=== PATIENT | female | born 1995 | race African-American/Black ===

== ENCOUNTER 2017-10-12 20:04 | Emergency (ER) | payer MEDICAID, OTHER ==
[~2017-10-12] VITALS: Ht 160 cm; Wt 61.0 kg
[~2017-10-12 20:04] MED LIST: ALBU05; ALPR2TAB; FLUT1DIS; MONT10TA21
[2017-10-12] MEDS ORDERED: SODIUM CHLORIDE 0.9% 1,000 ML IV ONE (23:05)
[2017-10-12] MEDS ORDERED: ONDANSETRON HCL 4MG/2ML VIAL IV STA (23:05)
[2017-10-12 23:39] LABS: EOSINOPHILS % 3.3 % (0.0-5.0); HEMATOCRIT. 39.7 % (36.0-48.0); LYMPHOCYTES % 34.7 % (20.0-50.0); MEAN CORPUSCULAR HEMOGLOBIN 28.6 pg (28.0-32.0); MEAN CORPUSCULAR VOLUME 87.4 fL (81.0-99.0); MEAN PLATELET VOLUME 7.1 fl (7.4-10.4); MONOCYTES % 4.4 % (2.0-8.0); NEUTROPHILS % 56.6 % (40.0-76.0); PLATELET 398 x1000/uL (130-400); RED BLOOD CELL COUNT 4.54 mill/uL (4.2-5.4); RED CELL DISTRIBUTION WIDTH 13.6 % (11.6-14.6)
[2017-10-12 23:42] LABS: PROTHROMBIN TIME 10.7 sec (9.4-11.6)
[2017-10-12 23:43] LABS: HCG SCREEN NEGATIVE
[2017-10-12 23:49] LABS: CHLORIDE 108 mEq/L (98-107); ETHANOL BLOOD 223 mg/dL
[2017-10-12 23:59] LABS: CLARITY URINE CLEAR (CLEAR); COLOR URINE YELLOW (YELLOW); KETONES URINE NEGATIVE (NEGATIVE); LEUKOCYTE ESTERASE URINE TRACE (NEGATIVE); NITRITE URINE NEGATIVE (NEGATIVE); OCCULT BLOOD URINE 3+ (NEGATIVE); PROTEIN URINE NEGATIVE (NEGATIVE); SPECIFIC GRAVITY URINE 1.009 (1.005-1.030); UROBILINOGEN URINE 0.2 E.U./dL (0.2-1.0)
[2017-10-13 00:33] LABS: *AMPHETAMINES SCREEN URINE NEGATIVE (NEGATIVE); *BARBITURATES SCREEN URINE NEGATIVE (NEGATIVE); *BENZODIAZEPINES SCREEN URINE NEGATIVE (NEGATIVE); *COCAINE SCREEN URINE NEGATIVE (NEGATIVE); CANNABINOID URINE SCREEN NEGATIVE (NEGATIVE); METHADONE URINE SCREEN NEGATIVE (NEGATIVE); OPIATES URINE SCREEN NEGATIVE (NEGATIVE); PHENCYCLIDINE URINE SCREEN NEGATIVE (NEGATIVE)
[2017-10-13 05:02] VITALS: BP 127/79
== END 2017-10-13 05:45 | disposition home or self-care (01) ==
LOC: ER 20:30
DX: F10.129 Alcohol abuse with intoxication, unspecified (principal); Y90.7 Blood alcohol level of 200-239 mg/100 ml; Z20.2 Contact with and (suspected) exposure to infections with a predominantly sexual mode of transmission; R42 Dizziness and giddiness; R03.0 Elevated blood-pressure reading, without diagnosis of hypertension; J44.9 Chronic obstructive pulmonary disease, unspecified; F17.210 Nicotine dependence, cigarettes, uncomplicated
CPT/HCPCS: 36415; 71045; 80053; 80305; 81001; 84703; 85025; 85610; 86703; 87077; 87086; 87186; 96360; 99285; G0482; J2405; J7030; Z7610; 81003

== ENCOUNTER 2018-07-01 02:48 | Emergency (ER) | payer MEDICAID, OTHER ==
[~2018-07-01] VITALS: Ht 162.6 cm; Wt 61.0 kg
[2018-07-01] MEDS ORDERED: MORPHINE SULFATE 4 MG/ML CPJ (NOT FOR IM USE) IV STA (03:47)
[2018-07-01] MEDS ORDERED: SODIUM CHLORIDE 0.9% 1,000 ML IV ONE (03:47)
[2018-07-01] MEDS ORDERED: ONDANSETRON HCL 4MG/2ML INJ IV STA (03:47)
[2018-07-01] MEDS ORDERED: MORPHINE SULFATE 4 MG/ML CPJ (NOT FOR IM USE) IV ONE (08:15)
[2018-07-01] MEDS ORDERED: ONDANSETRON HCL 4MG/2ML INJ IV ONE (08:15)
[2018-07-01 09:50] VITALS: BP 103/76
== END 2018-07-01 09:54 | disposition home or self-care (01) ==
LOC: ER 02:48
DX: S02.32XA Fracture of orbital floor, left side, initial encounter for closed fracture (principal); Y08.89XA Assault by other specified means, initial encounter; Y93.89 Activity, other specified; Y92.89 Other specified places as the place of occurrence of the external cause; Y99.8 Other external cause status; Z88.8 Allergy status to other drugs, medicaments and biological substances
CPT/HCPCS: 70450; 70486; 81025; 96361; 96374; 96375; 96376; 99284; J2270; J2405; J7030

== ENCOUNTER 2019-04-12 13:47 | Emergency (ER) | payer OTHER ==
[~2019-04-12] VITALS: Ht 162.6 cm; Wt 62.0 kg
[2019-04-12 15:44] LABS: CLARITY URINE CLOUDY (CLEAR); COLOR URINE YELLOW (YELLOW); KETONES URINE TRACE (NEGATIVE); LEUKOCYTE ESTERASE URINE 1+ (NEGATIVE); NITRITE URINE NEGATIVE (NEGATIVE); OCCULT BLOOD URINE NEGATIVE (NEGATIVE); PH URINE 5.5 (4.5-8.0); PROTEIN URINE NEGATIVE (NEGATIVE); SPECIFIC GRAVITY URINE 1.029 (1.005-1.030); UROBILINOGEN URINE 0.2 E.U./dL (0.2-1.0)
[2019-04-12] MEDS ORDERED: FLUCONAZOLE 50MG TABLET PO ONE (17:45)
[2019-04-12] MEDS ORDERED: DIPHENHYDRAMINE 25MG CAPSULE PO ONE (18:15)
[2019-04-12] MEDS ORDERED: CEFTRIAXONE SODIUM 250 MG/VIAL IM ONE (18:15)
[2019-04-12] MEDS ORDERED: AZITHROMYCIN 500 MG TABLET PO ONE (18:15)
[2019-04-12 19:00] VITALS: BP 124/76
== END 2019-04-12 19:19 | disposition home or self-care (01) ==
LOC: ER 13:47
DX: O98.811 Other maternal infectious and parasitic diseases complicating pregnancy, first trimester (principal); O23.41 Unspecified infection of urinary tract in pregnancy, first trimester; O21.9 Vomiting of pregnancy, unspecified; O23.511 Infections of cervix in pregnancy, first trimester; O99.511 Diseases of the respiratory system complicating pregnancy, first trimester; Z3A.08 8 weeks gestation of pregnancy; J45.909 Unspecified asthma, uncomplicated; Z98.890 Other specified postprocedural states; Z88.1 Allergy status to other antibiotic agents
CPT/HCPCS: 36415; 76801; 76817; 81003; 81025; 84702; 86850; 86900; 86901; 87491; 87591; 96372; 99284; J0696; Q0163

== ENCOUNTER 2019-07-10 15:38 | Emergency (ER) | payer OTHER ==
[~2019-07-10] VITALS: Ht 162.6 cm; Wt 56.0 kg
[2019-07-10] MEDS ORDERED: ACETAMINOPHEN 325MG TABLET PO ONE (18:00)
[2019-07-10 19:33] VITALS: BP 102/41
== END 2019-07-10 20:01 | disposition home or self-care (01) ==
LOC: ER 15:38
DX: S09.90XA Unspecified injury of head, initial encounter (principal); J45.909 Unspecified asthma, uncomplicated; Z98.890 Other specified postprocedural states; Z79.899 Other long term (current) drug therapy; V89.2XXA Person injured in unspecified motor-vehicle accident, traffic, initial encounter; Y93.89 Activity, other specified; Y92.89 Other specified places as the place of occurrence of the external cause; Y99.8 Other external cause status
CPT/HCPCS: 99284

== ENCOUNTER 2021-02-26 10:42 | Emergency (ER) | payer OTHER ==
[~2021-02-26] VITALS: Ht 162.6 cm; Wt 68.0 kg
[2021-02-26] MEDS ORDERED: PREDNISONE 20MG TABLET PO STA (11:02)
[2021-02-26] MEDS ORDERED: ALBUTEROL (0.083%) 2.5MG/3ML NEB HHN STA (11:02)
[2021-02-26] MEDS ORDERED: IPRATROPIUM BROMIDE (0.02%) 0.5MG/2.5ML NEB HHN STA (11:02)
[2021-02-26] MEDS ORDERED: P50 MT (12:15)
[2021-02-26] MEDS ORDERED: ALBU6.7H9 INH (12:15)
[2021-02-26] MEDS ORDERED: BECL10.62 INH (12:15)
[2021-02-26 12:43] VITALS: BP 152/78
== END 2021-02-26 12:44 | disposition home or self-care (01) ==
LOC: ER 11:45
DX: J45.901 Unspecified asthma with (acute) exacerbation (principal); J20.9 Acute bronchitis, unspecified; I10 Essential (primary) hypertension; F12.10 Cannabis abuse, uncomplicated; Z98.890 Other specified postprocedural states; Z79.899 Other long term (current) drug therapy; Z88.8 Allergy status to other drugs, medicaments and biological substances
CPT/HCPCS: 71045; 94644; 99285; J7512; Z7610

== ENCOUNTER 2021-06-10 12:21 | Emergency (ER) | payer OTHER ==
[~2021-06-10] VITALS: Ht 165.1 cm; Wt 70.0 kg
[~2021-06-10 12:21] MED LIST changes: +ALBU6.7H9 INH; +BECL10.62 INH; +P50 MT
[2021-06-10] MEDS ORDERED: MAGNESIUM/ALUMINUM HYDROXIDE/SIMETHICONE 30ML UDC PO STA (12:38)
[2021-06-10] MEDS ORDERED: SODIUM CHLORIDE 0.9% 1,000 ML IV ONE (12:45)
[2021-06-10] MEDS ORDERED: FAMOTIDINE 20MG TABLET PO ONE (13:15)
[2021-06-10] MEDS ORDERED: VISCOUS LIDOCAINE 2% 15 ML UDC MM ONE (13:15)
[2021-06-10 13:25] LABS: BASOPHILS % 1.4 % (0.0-2.0); EOSINOPHILS % 0.9 % (0.0-5.0); HEMATOCRIT. 41.5 % (36.0-48.0); HEMOGLOBIN. 14.2 g/dL (12.0-16.0); LYMPHOCYTES % 28.8 % (20.0-50.0); MEAN CORPUSCULAR HEMOGLOBIN 29.2 pg (28.0-32.0); MEAN CORPUSCULAR VOLUME 85.6 fL (81.0-99.0); MEAN PLATELET VOLUME 8.2 fl (7.4-10.4); MONOCYTES % 3.1 % (2.0-8.0); NEUTROPHILS % 65.8 % (40.0-76.0); PLATELET 492 x1000/uL (130-400); RED BLOOD CELL COUNT 4.86 mill/uL (4.2-5.4); RED CELL DISTRIBUTION WIDTH 14.7 % (11.6-14.6)
[2021-06-10 13:29] LABS: CHLORIDE 106 mEq/L (98-107)
[2021-06-10 13:35] LABS: ETHANOL BLOOD 241 mg/dL
[2021-06-10 14:31] VITALS: BP 128/75
== END 2021-06-10 14:33 | disposition home or self-care (01) ==
LOC: ER 12:21
DX: K29.20 Alcoholic gastritis without bleeding (principal); F10.229 Alcohol dependence with intoxication, unspecified; Y90.8 Blood alcohol level of 240 mg/100 ml or more; J45.909 Unspecified asthma, uncomplicated; F17.210 Nicotine dependence, cigarettes, uncomplicated; F12.10 Cannabis abuse, uncomplicated; Z71.6 Tobacco abuse counseling; Z98.890 Other specified postprocedural states; Z88.1 Allergy status to other antibiotic agents
CPT/HCPCS: 36415; 80053; 80320; 83690; 85025; 96360; 99283; 99406; J7030; G0480

== ENCOUNTER 2022-01-21 03:22 | Emergency (ER) | payer OTHER ==
[~2022-01-21] VITALS: Ht 167.6 cm; Wt 60.0 kg
[2022-01-21] MEDS ORDERED: IPRATROPIUM/ALBUTEROL 0.5-3(2.5)MG/3ML NEB HHN ONE (05:30)
[2022-01-21] MEDS ORDERED: DEXAMETHASONE 4MG TABLET PO SCH (05:45)
[2022-01-21 08:18] VITALS: BP 118/66
== END 2022-01-21 08:35 | disposition home or self-care (01) ==
LOC: ER 03:36
DX: J45.901 Unspecified asthma with (acute) exacerbation (principal); I10 Essential (primary) hypertension; F17.290 Nicotine dependence, other tobacco product, uncomplicated; F14.10 Cocaine abuse, uncomplicated; Z79.899 Other long term (current) drug therapy
CPT/HCPCS: 99283; J8540

== ENCOUNTER 2023-05-23 13:51 | Emergency (ER) | payer OTHER ==
[~2023-05-23] VITALS: Ht 165.1 cm; Wt 73.0 kg
[~2023-05-23 13:51] MED LIST changes: +ALBU6.7H3 INH; -ALBU6.7H9 INH; +MONT-46; -MONT10TA21
[2023-05-23 13:53] VITALS: O2SAT 100
[2023-05-23] MEDS ORDERED: ONDANSETRON HCL 4MG/2ML INJ IV ONE (14:00)
[2023-05-23] MEDS ORDERED: SODIUM CHLORIDE 0.9% 1,000 ML IV ONE (14:00)
[2023-05-23 15:07] LABS: BASOPHILS % 0.3 % (0.0-2.0); EOSINOPHILS % 5.3 % (0.0-5.0); HEMATOCRIT. 42.7 % (36.0-48.0); HEMOGLOBIN. 14.5 g/dL (12.0-16.0); LYMPHOCYTES % 36.6 % (20.0-50.0); MEAN CORPUSCULAR HEMOGLOBIN 29.6 pg (28.0-32.0); MEAN CORPUSCULAR HGB CONC 33.9 g/dL (31.0-37.0); MEAN CORPUSCULAR VOLUME 87.3 fL (81.0-99.0); MEAN PLATELET VOLUME 7.4 fl (7.4-10.4); MONOCYTES % 6.7 % (2.0-8.0); NEUTROPHILS % 51.1 % (40.0-76.0); PLATELET 344 x1000/uL (130-400); RED BLOOD CELL COUNT 4.89 mill/uL (4.2-5.4); RED CELL DISTRIBUTION WIDTH 16.9 % (11.6-14.6)
[2023-05-23 15:22] LABS: CHLORIDE 111 mEq/L (98-107); INDEX HEMOLYSI 1 (1-3); INDEX ICTERIC 1 (1-4); INDEX LIPEMIC 1 (1-3); POTASSIUM 3.9 mEq/L (3.5-5.1); SODIUM 136 mEq/L (136-145)
[2023-05-23 15:30] LABS: ALANINE AMINOTRANSFERASE 21 IU/L (13-61); ALBUMIN 4.1 g/dL (3.4-5.0); ASPARTATE AMINOTRANSFERASE 34 IU/L (15-37); B-HCG QUANTITATIVE < 1 mIU/mL (<3); BILIRUBIN TOTAL 0.3 mg/dL (0.1-1.0); CALCIUM 8.7 mg/dL (8.5-10.1); CARBON DIOXIDE 21 mEq/L (21-32); CREATININE 0.8 mg/dL (0.6-1.3); GLUCOSE 85 mg/dL (70-105); PROTEIN TOTAL 8.2 g/dL (6.0-8.3); UREA NITROGEN BLOOD 4 mg/dL (7-21)
[2023-05-23] MEDS ORDERED: KETOROLAC 30MG/ML VIAL IV STA (15:50)
[2023-05-23] MEDS ORDERED: ONDANSETRON 4MG ODT PO ONE (16:45)
[2023-05-23] MEDS ORDERED: ONDA4TAB50 MT (20:45)
[2023-05-23] MEDS ORDERED: OMEP40CA20 MT (20:45)
[2023-05-23] MEDS ORDERED: ONDANSETRON HCL 4MG/2ML INJ IV NR (21:34)
[2023-05-23 21:49] LABS: CLARITY URINE TURBID (CLEAR); COLOR URINE RED (YELLOW); GLUCOSE URINE NEGATIVE (NEGATIVE); KETONES URINE NEGATIVE (NEGATIVE); LEUKOCYTE ESTERASE URINE 2+ (NEGATIVE); NITRITE URINE POSITIVE (NEGATIVE); OCCULT BLOOD URINE 2+ (NEGATIVE); PROTEIN URINE 2+ (NEGATIVE)
[2023-05-23] MEDS ORDERED: KETOROLAC 30MG/ML VIAL IV NR (21:49)
[2023-05-23 22:12] LABS: RBC URINE TNTC /hpf (0-2); SQUAMOUS EPITHELIAL CELL URINE 2+ /lpf (RARE/1+); WBC URINE 25-50 /hpf (0-2)
[2023-05-23 22:13] LABS: BACTERIA URINE 3+
[2023-05-23 22:38] LABS: *AMPHETAMINES SCREEN URINE NEGATIVE (NEGATIVE); *BARBITURATES SCREEN URINE NEGATIVE (NEGATIVE); *BENZODIAZEPINES SCREEN URINE NEGATIVE (NEGATIVE); CANNABINOID URINE SCREEN NEGATIVE (NEGATIVE); ECSTASY MDMA SCREEN URINE NEGATIVE (NEGATIVE); METHADONE URINE SCREEN NEGATIVE (NEGATIVE); OPIATES URINE SCREEN NEGATIVE (NEGATIVE); PHENCYCLIDINE URINE SCREEN NEGATIVE (NEGATIVE)
[2023-05-23 22:40] LABS: *COCAINE SCREEN URINE PRESUMTIVE POSITIVE (NEGATIVE)
[2023-05-23] MEDS ORDERED: SULF1TAB48 MT (23:05)
[2023-05-23 23:08] VITALS: BP 143/94; PULSE 83; RESP 18; TEMP 98.3
== END 2023-05-23 23:13 | disposition home or self-care (01) ==
LOC: ER 13:51
DX: N39.0 Urinary tract infection, site not specified (principal); N12 Tubulo-interstitial nephritis, not specified as acute or chronic; R10.819 Abdominal tenderness, unspecified site; R11.2 Nausea with vomiting, unspecified; J45.909 Unspecified asthma, uncomplicated; I10 Essential (primary) hypertension; Z88.8 Allergy status to other drugs, medicaments and biological substances
CPT/HCPCS: 80053; 80305; 81003; 81025; 84702; 85025; 86850; 86900; 86901; 87086; 87186; 87077; 36415; 74176; 96361; 96374; 96375; 99285; Q0162; J1885; J2405; J7030; Z7610; 99291

== ENCOUNTER 2023-12-13 20:45 | Emergency (ER) | payer MEDICAID, OTHER ==
[~2023-12-13] VITALS: Ht 162.6 cm; Wt 60.0 kg
[~2023-12-13 20:45] MED LIST changes: +OMEP40CA20 MT; +ONDA4TAB50 MT; +SULF1TAB48 MT
[2023-12-13 21:10] VITALS: BP 145/90; PULSE 108; RESP 20; TEMP 97.9; O2SAT 99
== END 2023-12-13 21:53 | disposition home or self-care (01) ==
LOC: ER 20:55
DX: S09.90XA Unspecified injury of head, initial encounter (principal); J45.909 Unspecified asthma, uncomplicated; I10 Essential (primary) hypertension; F14.10 Cocaine abuse, uncomplicated; Z79.899 Other long term (current) drug therapy; V49.59XA Passenger injured in collision with other motor vehicles in traffic accident, initial encounter; Y93.89 Activity, other specified; Y92.89 Other specified places as the place of occurrence of the external cause; Y99.8 Other external cause status
CPT/HCPCS: 99283

== ENCOUNTER 2024-01-05 06:09 | Emergency (ER) | payer MEDICAID ==
[~2024-01-05] VITALS: Ht 167.6 cm; Wt 62.0 kg
[2024-01-05] MEDS: PREDNISONE 20MG TABLET PO STA (06:12)
[2024-01-05] MEDS ORDERED: P20 PO (06:25)
[2024-01-05] MEDS ORDERED: ALBU6.7H15 INH (06:25)
[2024-01-05] MEDS: ALBUTEROL (0.083%) 2.5MG/3ML NEB HHN STA (06:38)
[2024-01-05] MEDS: IPRATROPIUM BROMIDE (0.02%) 0.5MG/2.5ML NEB HHN STA (06:43)
[2024-01-05 06:47] VITALS: PULSE 90; RESP 20; O2SAT 99
[2024-01-05 07:30] VITALS: BP 112/77; PULSE 100; RESP 19; TEMP 98
== END 2024-01-05 08:03 | disposition home or self-care (01) ==
LOC: ER 06:09
DX: J45.901 Unspecified asthma with (acute) exacerbation (principal); F14.10 Cocaine abuse, uncomplicated; Z79.899 Other long term (current) drug therapy
CPT/HCPCS: 99285; J7512; Z7610

== ENCOUNTER 2024-01-19 18:09 | Emergency (ER) | payer MEDICAID ==
[~2024-01-19] VITALS: Ht 162.6 cm; Wt 64.0 kg
[~2024-01-19 18:09] MED LIST changes: +ALBU6.7H15 INH; +P20 PO
[2024-01-19 18:55] VITALS: O2SAT 99
[2024-01-19 22:41] VITALS: TEMP 98.3
[2024-01-19] MEDS: KETOROLAC 60MG/2ML VIAL IM ONE (22:41)
[2024-01-19] MEDS: ACETAMINOPHEN 325MG TABLET PO ONE (22:41)
[2024-01-19] MEDS ORDERED: POLY17PO3 MT (22:56)
[2024-01-19 23:11] VITALS: BP 121/79; PULSE 97; RESP 18
== END 2024-01-19 23:14 | disposition home or self-care (01) ==
LOC: ER 18:09
DX: K64.4 Residual hemorrhoidal skin tags (principal); J45.909 Unspecified asthma, uncomplicated; I10 Essential (primary) hypertension
CPT/HCPCS: 81025; 99282; J1885